=== PATIENT | female | born 2000 | race Caucasian/White ===

== ENCOUNTER 2023-01-07 08:07 | Emergency (ER) | payer BC ==
[2023-01-07 08:45] LABS: Specific Gravity > 1.030 (1.005-1.030)
[2023-01-07 08:46] LABS: Specific Gravity > 1.030 (1.005-1.030); Urine Bacteria None Seen /HPF (<20); Urine Bilirubin NEGATIVE (Negative); Urine Blood Trace (Negative); Urine Clarity Clear (Clear); Urine Color Yellow (Yellow); Urine Glucose NEGATIVE (Negative); Urine Mucus Slight /HPF (None Seen); Urine Protein TRACE (Negative); Urine RBC <5 /HPF (None Seen); Urine Urobilinogen Normal (Normal)
[2023-01-07 08:51] LABS: Absolute Lymphocytes (CBC) 0.6 K/uL (0.7-4.9); Hematocrit 41.1 % (36.0-45.0); Lymphocytes % 5.6 % (15.3-44.8); MCV 90.5 fL (80-100); MPV 10.4 fL (7.6-11.3); RBC Red Blood Cell Count 4.54 M/uL (3.86-4.86)
[2023-01-07] MEDS ORDERED: PANTOPRAZOLE 40 MG INJ ONE (08:53)
[2023-01-07] MEDS ORDERED: DIPHENHYDRAMINE 50 MG/ML VIAL ONE (08:53)
[2023-01-07] MEDS ORDERED: ONDANSETRON 4 MG/2 ML VIAL ONE (08:53)
[2023-01-07] MEDS ORDERED: NA CHLORIDE 0.9% 1,000 ML ONE (08:53)
[2023-01-07 09:07] LABS: Albumin 3.9 g/dL (3.4-5.0); Bilirubin Total 1.2 mg/dL (0.2-1.0); Magnesium 1.9 mg/dL (1.6-2.4); Potassium 3.5 mEq/L (3.5-5.1); Protein, Total 7.7 g/dL (6.4-8.2)
--- NOTE | 2023-01-07 09:44 | RAD REPORT ---
EXAM DESCRIPTION: CTAbdomen Pelvis W Contrast - 01/07/2023 9:34 am CLINICAL HISTORY: Abdominal pain. Abd pain;Nausea / vomiting COMPARISON: <Comparisons> TECHNIQUE: Biphasic CT imaging of the abdomen and pelvis was performed with 100 ml non-ionic IV cont rast. All CT scans are performed using dose optimization technique as appropriate and may include automated exposure control or mA/KV adjustment according to patient size. FINDINGS: The lung bases are clear. The liver, spleen, pancreas, adrenal glands and kidneys are within normal limits. No bowel obstruction, free air, free fluid or abscess. The appendix is normal. No evidence of signi ficant lymphadenopathy. No suspicious bony findings. IMPRESSION: No acute intra-abdominal or pelvic finding.
[2023-01-07 09:45] LABS: Barbiturates NEGATIVE (NEGATIVE); Benzodiazepines NEGATIVE (NEGATIVE); Cocaine NEGATIVE (NEGATIVE); METHAMPHETAM NEGATIVE (NEGATIVE); Methadone NEGATIVE (NEGATIVE); Opiates NEGATIVE (NEGATIVE); Phencyclidine NEGATIVE (NEGATIVE); THC Cannibis NEGATIVE (NEGATIVE)
[2023-01-07 10:07] LABS: Platelet Estimate ADEQ; White Blood Cell Scan OK (OK)
--- NOTE | 2023-01-07 10:07 | ER ---
Nurse's Notes [facility] Name: Ella Johnson Age: 22 yrs Sex: Female : 2000 Arrival Date: 01/07/2023 Time: 08:07 Bed 5 Private MD: Diagnosis: Nausea with vomiting, unspecified;Diarrhea, unspecified;Abdominal pain, unspecified Presentation: 01/07 08:17 Chief complaint: Low back pain, N/V, subjective fever, chills, and body aches x 2 days. hb Coronavirus screen: Client presents with at least one sign or symptom that may indicate coronavirus-19. Provider contacted for isolation considerations. Ebola Screen: No symptoms or risks identified at this time. Initial Sepsis Screen: Does the patient meet any 2 criteria? No. Patient's initial sepsis screen is negative. Does the patient have a suspected source of infection? No. Patient's initial sepsis screen is negative. Risk Assessment: Do you want to hurt yourself or someone else? Patient reports no desire to harm self or others. Onset of symptoms was January 06, 2023. 08:17 Method Of Arrival: Ambulatory 08:17 Acuity: GHASSAN 3 hb Triage Assessment: 10:08 General: Appears in no apparent distress. uncomfortable, Behavior is calm, cooperative, aa5 appropriate for age. Pain: Complains of pain in abdomen. GI: Reports. GI: Reports vomiting. 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 - Social history:: Smoking status: Patient denies any tobacco usage or history of. Screenin:08 [facility] ED Fall Risk Assessment (Adult) Score/Fall Risk Level 0 - 2 = Low Risk. Abuse aa5 screen: Denies threats or abuse. Denies injuries from another. Nutritional screening: No deficits noted. Tuberculosis screening: No symptoms or risk factors identified. Assessment: 08:53 Reassessment: Patient is alert, oriented x 3, equal unlabored respirations, skin aa5 warm/dry/pink. Pt's mother at bedside. Aware of wait time for lab results. . 10:11 Pain: Complains of pain in abdomen. GI: GI: Abdomen is round non-distended, Reports aa5 vomiting. Vital Signs: 08:17 BP 128 / 80; Pulse 82; Resp 16; Temp 98.9(O); Pulse Ox 97% on R/A; Weight 89.81 kg; hb Height 5 ft. 9 in. ; Pain 6/10; 09:19 BP 117 / 67; Pulse 72; Resp 18; Pulse Ox 100% on R/A; ld1 10:00 BP 110 / 66; Pulse 66; Resp 18; Pulse Ox 97% on R/A; aa5 08:17 Body Mass Index 29.24 (89.81 kg, 175.26 cm) hb 08:17 Pain Scale: Adult hb ED Course: 08:08 Patient arrived in ED. am2 08:12 Triston Hobson PA is PHCP. cp 08:12 Luke Ko MD is Attending Physician. cp 08:18 Tere Luna RN is Primary Nurse. ld1 08:18 Triage completed. hb 08:18 Arm band placed on. hb 08:43 Initial lab(s) drawn, by me, sent to lab. Inserted saline lock: 20 gauge in right aa5 antecubital area, using aseptic technique. Blood collected. 09:36 CT Abd/Pelvis - IV Contrast Only In Process Unspecified. EDMS 10:08 Patient has correct armband on for positive identification. aa5 10:10 No provider procedures requiring assistance completed. IV discontinued, intact, aa5 bleeding controlled, No redness/swelling at site. Pressure dressing applied. Administered Medications: 08:50 Drug: NS 0.9% IV 1000 ml Route: IV; Rate: 1 bolus; Site: right antecubital; aa5 10:00 Follow up: IV Status: Completed infusion; IV Intake: 1000ml aa5 08:50 Drug: Ondansetron IVP 4 mg Route: IVP; Site: right antecubital; aa5 10:00 Follow up: Response: Nausea is decreased aa5 08:52 Drug: Pantoprazole IVP 40 mg Route: IVP; Site: right antecubital; aa5 10:00 Follow up: Response: No adverse reaction aa5 08:53 Drug: diphenhydrAMINE IVP 25 mg Route: IVP; Site: right antecubital; aa5 10:00 Follow up: Response: No adverse reaction aa5 Medication: 10:08 VIS not applicable for this client. aa5 Intake: 10:00 IV: 1000ml; Total: 1000ml. aa5 Outcome: 10:06 Discharge ordered by . bijan 10:12 Discharged to home ambulatory. aa5 10:12 Condition: stable 10:12 Discharge instructions given to patient, Instructed on discharge instructions, follow up and referral plans. medication usage, Demonstrated understanding of instructions, follow-up care, medications, Prescriptions given X 2. 10:30 Patient left the ED. aa5 Signatures: Dispatcher [employer] EDCristina Tirado RN RN aa5 Triston Hobson PA PA cp Baxter, Heather, RN RN Stacie Irizarry 2 Tere Luna RN RN ld1
--- NOTE | 2023-01-07 10:07 | EDPHYS ---
Physician Documentation [facility] Name: Ella Johnson Age: 22 yrs Sex: Female : 2000 Arrival Date: 01/07/2023 Time: 08:07 Bed 5 Private MD: ED Physician Luke Ko HPI: 01/07 08:25 This 22 yrs old Female presents to ER via Ambulatory with complaints of Vomiting. cp 08:25 The patient presents to the emergency department with nausea, with "dry heaves", cp vomiting, that is continuous, described as dark brown, diarrhea, that is continuous, abdominal pain, of the mid abdomen. Onset: The symptoms/episode began/occurred yesterday. Possible causes: unknown. 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 - Social history:: Smoking status: Patient denies any tobacco usage or history of. ROS: 08:30 Constitutional: Positive for poor PO intake, Negative for fever. cp 08:30 Respiratory: Negative for cough, shortness of breath, wheezing. cp 08:30 Abdomen/GI: Positive for abdominal pain, nausea, vomiting, and diarrhea, anorexia, Negative for constipation, hematemesis, rectal bleeding. 08:30 Back: Positive for pain at rest, pain with movement. 08:30 Eyes: Negative for injury, pain, redness, and discharge. cp 08:30 ENT: Negative for drainage from ear(s), ear pain, sore throat, difficulty swallowing, difficulty handling secretions. 08:30 Cardiovascular: Negative for chest pain, edema, palpitations. 08:30 : Negative for urinary symptoms. 08:30 All other systems are negative. Exam: 08:35 Constitutional: The patient appears in no acute distress, alert, awake, non-toxic, well cp developed, well nourished, uncomfortable. 08:35 Head/Face: Normocephalic, atraumatic. cp 08:35 Eyes: Periorbital structures: appear normal, Conjunctiva: normal, no exudate, no injection, Sclera: no appreciated abnormality, Lids and lashes: appear normal, bilaterally. 08:35 ENT: External ear(s): are unremarkable, Nose: is normal, Mouth: Lips: moist, Oral mucosa: pink and intact, moist, Posterior pharynx: is normal, airway is patent, no erythema, no exudate. 08:35 Neck: ROM/movement: is normal, is supple, without pain, no range of motions limitations, no meningismus. 08:35 Chest/axilla: Inspection: normal, Palpation: is normal, no crepitus, no tenderness. 08:35 Cardiovascular: Rate: normal, Rhythm: regular, JVD: is not appreciated. 08:35 Respiratory: the patient does not display signs of respiratory distress, Respirations: normal, no use of accessory muscles, no retractions, labored breathing, is not present, Breath sounds: are clear throughout, no decreased breath sounds, no stridor, no wheezing. 08:35 Abdomen/GI: Inspection: abdomen appears normal, Bowel sounds: active, all quadrants, Palpation: soft, in all quadrants, moderate abdominal tenderness, in the abdomen diffusely, rebound tenderness, is not appreciated, involuntary guarding, is not appreciated. 08:35 Back: CVA tenderness, is absent. 08:35 Neuro: Orientation: to person, place \\T\\ time. Mentation: is normal, Motor: moves all fours, strength is normal, Sensation: is normal. Vital Signs: 08:17 BP 128 / 80; Pulse 82; Resp 16; Temp 98.9(O); Pulse Ox 97% on R/A; Weight 89.81 kg; hb Height 5 ft. 9 in. ; Pain 6/10; 09:19 BP 117 / 67; Pulse 72; Resp 18; Pulse Ox 100% on R/A; ld1 10:00 BP 110 / 66; Pulse 66; Resp 18; Pulse Ox 97% on R/A; aa5 08:17 Body Mass Index 29.24 (89.81 kg, 175.26 cm) hb 08:17 Pain Scale: Adult hb MDM: 01/06 10:05 Data reviewed: vital signs, nurses notes, lab test result(s), EKG, radiologic studies, cp CT scan. 01/07 08:16 Patient medically screened. cp 09:00 Differential diagnosis: gastritis, cholecystitis, pancreatitis, appendicitis, viral cp gastroenteritis, gastroenteritis. 10:05 Consideration of Admission/Observation Escalation of care including admission/observation considered. 10:05 I considered the following discharge prescriptions or medication management in the emergency department Medications were administered in the Emergency Department. See MAR. Counseling: I had a detailed discussion with the patient and/or guardian regarding: the historical points, exam findings, and any diagnostic results supporting the discharge/admit diagnosis, lab results, radiology results, to return to the emergency department if symptoms worsen or persist or if there are any questions or concerns that arise at home. Response to treatment: the patient's symptoms have markedly improved after treatment, Pain and nausea markedly improved. Patient tolerating po fluids. Will discharge to home for continued monitoring. 01/07 08:21 Order name: CBC with Diff; Complete Time: 10:11 01/07 09:01 Interpretation: Normal except: MIGUEL% 88.7; LYM% 5.6; NEUT A 8.8; LYMA 0.6. 01/07 08:21 Order name: CMP; Complete Time: 09:28 01/07 09:28 Interpretation: Normal except: NA 135; AST 12; BILIT 1.2; GLOB 3.8; A/G 1.0. 01/07 08:21 Order name: Lipase; Complete Time: 09:28 01/07 08:21 Order name: Test, Urine; Complete Time: 09:01 01/07 08:21 Order name: Urinalysis w/ reflexes; Complete Time: 09:01 01/07 09:01 Interpretation: Normal except: Urine SG > 1.030; UBLD Trace; UPROT TRACE. 01/07 08:21 Order name: Magnesium; Complete Time: 09:28 01/07 08:21 Order name: UDS; Complete Time: 09:51 01/07 09:51 Interpretation: Reviewed. 01/07 10:08 Order name: CBC Smear Scan; Complete Time: 10:11 EDMS 01/07 10:12 Interpretation: Reviewed. 01/07 09:02 Order name: CT Abd/Pelvis - IV Contrast Only; Complete Time: 09:51 01/07 09:51 Interpretation: Report reviewed. 01/07 08:21 Order name: IV Saline Lock; Complete Time: 08:43 01/07 08:21 Order name: Labs collected and sent; Complete Time: 08:43 cp 01/07 09:52 Order name: PO challenge; Complete Time: 10:05 cp Administered Medications: 08:50 Drug: NS 0.9% IV 1000 ml Route: IV; Rate: 1 bolus; Site: right antecubital; aa5 10:00 Follow up: IV Status: Completed infusion; IV Intake: 1000ml aa5 08:50 Drug: Ondansetron IVP 4 mg Route: IVP; Site: right antecubital; aa5 10:00 Follow up: Response: Nausea is decreased aa5 08:52 Drug: Pantoprazole IVP 40 mg Route: IVP; Site: right antecubital; aa5 10:00 Follow up: Response: No adverse reaction aa5 08:53 Drug: diphenhydrAMINE IVP 25 mg Route: IVP; Site: right antecubital; aa5 10:00 Follow up: Response: No adverse reaction aa5 Disposition: 14:13 Co-signature as Attending Physician, Luke Ko MD I agree with the assessment and kdr plan of care. Disposition Summary: 01/07/23 10:06 Discharge Ordered Location: Home cp Problem: new cp Symptoms: have improved cp Condition: Stable cp Diagnosis - Nausea with vomiting, unspecified cp - Diarrhea, unspecified cp - Abdominal pain, unspecified cp Followup: cp - With: Private Physician - When: 1 - 2 days - Reason: Worsening of condition Discharge Instructions: - Discharge Summary Sheet cp - Abdominal Pain, Adult cp - Food Choices to Help Relieve Diarrhea, Adult cp - Diarrhea, Adult cp - Nausea and Vomiting, Adult cp Forms: - Medication Reconciliation Form cp - Thank You Letter cp - Antibiotic Education cp - Prescription Opioid Use cp Prescriptions: - Protonix 40 mg Oral Tablet - take 1 tablet by ORAL route once daily; 30 tablet; Refills: 0, Product cp Selection Permitted - Zofran 4 mg Oral Tablet - take 1 tablet by ORAL route every 12 hours As needed; 20 tablet; Refills: 0, cp Product Selection Permitted Signatures: Dispatcher [employer] Luke Kay MD MD kdr Calderon, Audri RN RN aa5 Triston Hobson PA PA cp Valeria Arriaga RN RN
[2023-01-07 10:08] LABS: Blood Morphology Comment NOT SEEN (NOT SEEN)
[2023-01-07 10:39] VITALS: BP 117/67; TEMP 98.9; O2SAT 100
== END 2023-01-07 10:30 | disposition home or self-care (01) ==
LOC: ER 08:07
DX: R11.2 Nausea with vomiting, unspecified (principal); R19.7 Diarrhea, unspecified; R10.9 Unspecified abdominal pain
CPT/HCPCS: 96361; 85025; 81001; 36415; 83735; 81025; 83690; 80053; 80307; 74177; 96375; 96374; 99284; Q9967; J1200; C9113; J2405; J7030

== ENCOUNTER 2023-01-10 07:54 | Emergency (ER) | payer BC ==
[2023-01-10] MEDS ORDERED: Ringers Lactate 1,000 ML IV ONE (08:24)
[2023-01-10 08:38] LABS: Absolute Lymphocytes (CBC) 1.4 K/uL (0.7-4.9); Hematocrit 41.2 % (36.0-45.0); Lymphocytes % 25.4 % (15.3-44.8); MCV 90.2 fL (80-100); MPV 9.9 fL (7.6-11.3); RBC Red Blood Cell Count 4.57 M/uL (3.86-4.86)
[2023-01-10 09:33] LABS: Potassium 3.9 mEq/L (3.5-5.1); Troponin High Sensitivity 3.1 pg/mL (<58.9)
--- NOTE | 2023-01-10 09:34 | RAD REPORT ---
EXAM DESCRIPTION: RAD - Chest Single View - 01/10/2023 8:52 am CLINICAL HISTORY: chest pain, near syncope Chest pain. COMPARISON: No comparisons FINDINGS: Portable technique limits examination quality. The lungs are grossly clear. The heart is normal in size. No displaced fractures. IMPRESSION: No acute intrathoracic process suspected.
[2023-01-10 10:22] LABS: Specific Gravity 1.006 (1.005-1.030)
[2023-01-10 10:23] LABS: Specific Gravity 1.006 (1.005-1.030); Urine Bilirubin NEGATIVE (Negative); Urine Blood Negative (Negative); Urine Clarity Clear (Clear); Urine Color Colorless (Yellow); Urine Glucose NEGATIVE (Negative); Urine Protein NEGATIVE (Negative); Urine Urobilinogen Normal (Normal); Urine pH 6.5 (5.0-7.0)
[2023-01-10] MEDS ORDERED: MECLIZINE HCL 12.5 MG TAB ONE (10:58)
--- NOTE | 2023-01-10 10:59 | RAD REPORT ---
EXAM DESCRIPTION: CT - Head Brain Wo Cont - 01/10/2023 10:46 am CLINICAL HISTORY: DIZZINESS Headache, drowsiness COMPARISON: No comparisons TECHNIQUE: All CT scans are performed using dose optimization technique as appropriate and may inclu de automated exposure control or mA/KV adjustment according to patient size. FINDINGS: No intracranial hemorrhage, hydrocephalus or extra-axial fluid collection.No areas of brai n edema or evidence of midline shift. The paranasal sinuses and mastoids are clear. The calvarium is intact. IMPRESSION: No acute intracranial abnormality.
--- NOTE | 2023-01-10 12:19 | ER ---
Nurse's Notes [facility] Name: Ella Johnson Age: 22 yrs Sex: Female : 2000 Arrival Date: 01/10/2023 Time: 07:54 Bed 8 Private MD: Diagnosis: Dizziness and giddiness Presentation: 01/10 08:02 Chief complaint: Patient states: was here on Sunday for n/v/abd pain, has not been iw eating much, feels very foggy and weak now. Coronavirus screen: At this time, the client does not indicate any symptoms associated with coronavirus-19. Ebola Screen: Patient negative for fever greater than or equal to 101.5 degrees Fahrenheit, and additional compatible Ebola Virus Disease symptoms Patient denies exposure to infectious person. Patient denies travel to an Ebola-affected area in the 21 days before illness onset. No symptoms or risks identified at this time. Initial Sepsis Screen: Does the patient meet any 2 criteria? No. Patient's initial sepsis screen is negative. Does the patient have a suspected source of infection? No. Patient's initial sepsis screen is negative. Risk Assessment: Do you want to hurt yourself or someone else? Patient reports no desire to harm self or others. Onset of symptoms was January 07, 2023. 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 - Social history:: Smoking status: Patient denies any tobacco usage or history of. Screenin:29 [facility] ED Fall Risk Assessment (Adult) History of falling in the last 3 months, kc6 including since admission No falls in past 3 months (0 pts) Confusion or Disorientation No (0 pts) Intoxicated or Sedated No (0 pts) Impaired Gait No (0 pts) Mobility Assist Device Used No (0 pt) Altered Elimination No (0 pt) Score/Fall Risk Level 0 - 2 = Low Risk Oriented to surroundings, Maintained a safe environment, Educated pt \T\ family on fall prevention, incl call for assistance when getting out of bed, Assessed \T\ reinforced patient's understanding of fall precautions, Hourly rounding (assess needs \T\ fall precautionary measures) done. Abuse screen: Denies threats or abuse. Denies injuries from another. Nutritional screening: No deficits noted. Tuberculosis screening: No symptoms or risk factors identified. Assessment: 08:30 General: Appears in no apparent distress. comfortable, Behavior is calm, cooperative, kc6 appropriate for age. Pain: Denies pain. Neuro: Gallagher Agitation-Sedation Scale (RASS): 0 - Alert and Calm Level of Consciousness is awake, alert, obeys commands, Oriented to person, place, time, situation, Appropriate for age Reports dizziness, Denies headache. Cardiovascular: Capillary refill < 3 seconds. Respiratory: Airway is patent Trachea midline Respiratory effort is even, unlabored, Respiratory pattern is regular, symmetrical. GI: No signs and/or symptoms were reported involving the gastrointestinal system. : No signs and/or symptoms were reported regarding the genitourinary system. EENT: No signs and/or symptoms were reported regarding the EENT system. Derm: No signs and/or symptoms reported regarding the dermatologic system. Skin is intact, Skin is pink, warm \T\ dry. Musculoskeletal: No signs and/or symptoms reported regarding the musculoskeletal system. Circulation, motion, and sensation intact. Capillary refill < 3 seconds, Range of motion: intact in all extremities. 09:30 Reassessment: Patient appears in no apparent distress at this time. No changes from kc6 previously documented assessment. Patient and/or family updated on plan of care and expected duration. Pain level reassessed. Patient is alert, oriented x 3, equal unlabored respirations, skin warm/dry/pink. 10:30 Reassessment: Patient appears in no apparent distress at this time. No changes from kc6 previously documented assessment. Patient and/or family updated on plan of care and expected duration. Pain level reassessed. Patient is alert, oriented x 3, equal unlabored respirations, skin warm/dry/pink. 11:30 Reassessment: Patient appears in no apparent distress at this time. No changes from kc6 previously documented assessment. Patient and/or family updated on plan of care and expected duration. Pain level reassessed. Patient is alert, oriented x 3, equal unlabored respirations, skin warm/dry/pink. 13:05 Reassessment: Patient is alert, oriented x 3, equal unlabored respirations, skin aa5 warm/dry/pink. Vital Signs: 08:02 BP 129 / 76; Pulse 69; Resp 16; Temp 98.2; Pulse Ox 100% on R/A; Weight 88.45 kg; iw Height 5 ft. 9 in. ; 09:19 BP 111 / 69; Pulse 59; Resp 18 S; Pulse Ox 100% on R/A; Pain 0/10; kc6 10:43 BP 117 / 81; Pulse 55; Resp 18 S; Pulse Ox 100% on R/A; kc6 11:48 BP 111 / 63; Pulse 59; Resp 18 S; Pulse Ox 100% on R/A; kc6 08:02 Body Mass Index 28.80 (88.45 kg, 175.26 cm) iw 09:19 Pain Scale: Adult kc6 ED Course: 07:56 Patient arrived in ED. ts1 08:03 Triage completed. iw 08:04 Arm band placed on. iw 08:06 Everette Potts PA is PHCP. jmm 08:06 Vic Dejesus MD is Attending Physician. jmm 08:12 Essie Montalvo, ELAINA is Primary Nurse. kc6 08:29 Patient has correct armband on for positive identification. Bed in low position. Call kc6 light in reach. Side rails up X2. 08:29 Inserted saline lock: 20 gauge in right antecubital area, using aseptic technique. kc6 Blood collected. 08:54 XRAY Chest (1 view) In Process Unspecified. EDMS 10:12 Urinalysis w/ reflexes Sent. kc6 10:12 PREGU Sent. kc6 10:46 CT Head Brain wo Cont In Process Unspecified. EDMS 12:18 Coty Gilliland MD is Referral Physician. jmm 13:05 IV discontinued, intact, bleeding controlled, No redness/swelling at site. Pressure aa5 dressing applied. 13:05 No provider procedures requiring assistance completed. aa5 Administered Medications: 08:29 Drug: Lactated Ringers Solution IV 1000 ml Route: IV; Rate: 1000 bolus; Site: right kc6 antecubital; 10:49 Follow up: Response: No adverse reaction; IV Status: Completed infusion; IV Intake: kc6 1000ml 10:53 Drug: Meclizine PO 50 mg Route: PO; kc6 13:05 Follow up: Response: No adverse reaction aa5 12:40 Drug: Decadron - Dexamethasone IVP 10 mg Route: IVP; Site: left antecubital; kc6 13:05 Follow up: Response: No adverse reaction aa5 Medication: 13:05 VIS not applicable for this client. aa5 Intake: 10:49 IV: 1000ml; Total: 1000ml. kc6 Outcome: 12:18 Discharge ordered by MD. dos santos 13:05 Discharged to home ambulatory. aa5 13:05 Condition: stable 13:05 Discharge instructions given to patient, Instructed on discharge instructions, follow up and referral plans. medication usage, Demonstrated understanding of instructions, follow-up care, medications, Prescriptions given X 2. 13:10 Patient left the ED. kc6 Signatures: Dispatcher [employer] EDMS Everette Potts PA PA jmm Williams, Irene, RN RN iw Calderon, Audri RN Essie Campos RN RN kc6 Cecy Stovall PAS PAS ts1 Corrections: (The following items were deleted from the chart) 08:04 08:03 PSHx: Unable to Obtain; iw iw
--- NOTE | 2023-01-10 12:19 | EDPHYS ---
Physician Documentation [facility] Name: Ella Johnson Age: 22 yrs Sex: Female : 2000 Arrival Date: 01/10/2023 Time: 07:54 Bed 8 Private MD: ED Physician Vic Dejesus HPI: 01/10 08:11 This 22 yrs old Female presents to ER via Ambulatory with complaints of Dizziness. jmm 08:11 The patient presents with dizziness. Onset: The symptoms/episode began/occurred jmm gradually, 3 day(s) ago. Context:. Modifying factors: The symptoms are alleviated by nothing, the symptoms are aggravated by changing position. Associated signs and symptoms: Pertinent positives: nausea. This is a 22 year old female with no chronic medical conditions that presents to the ED with complaints of dizziness, nausea, vomiting. Was evaluated previously in the ED with negative CT scan of abdomen. Returned due to feeling "foggy" with dizziness and continued nausea. . [employer]: 08:04 LMP N/A - Irregular menses iw Historical: - Allergies: 08:03 No Known Allergies; iw - Home Meds: 08:03 None [Active]; iw - PMHx: 08:03 None; iw - PSHx: 08:03 None; iw - Immunization history:: Adult Immunizations. - Social history:: Smoking status: Patient denies any tobacco usage or history of. ROS: 12:14 Constitutional: Negative for fever, chills, and weight loss, Cardiovascular: Negative jmm for chest pain, palpitations, and edema, Respiratory: Negative for shortness of breath, cough, wheezing, and pleuritic chest pain. 12:14 Abdomen/GI: Positive for nausea. 12:14 Neuro: Positive for dizziness. 12:14 All other systems are negative. Exam: 12:14 Constitutional: This is a well developed, well nourished patient who is awake, alert, jmm and in no acute distress. Head/Face: atraumatic. 12:14 Eyes: Nystagmus: nystagmus with fast component noted. Vital Signs: 08:02 BP 129 / 76; Pulse 69; Resp 16; Temp 98.2; Pulse Ox 100% on R/A; Weight 88.45 kg; iw Height 5 ft. 9 in. ; 09:19 BP 111 / 69; Pulse 59; Resp 18 S; Pulse Ox 100% on R/A; Pain 0/10; kc6 10:43 BP 117 / 81; Pulse 55; Resp 18 S; Pulse Ox 100% on R/A; kc6 11:48 BP 111 / 63; Pulse 59; Resp 18 S; Pulse Ox 100% on R/A; kc6 08:02 Body Mass Index 28.80 (88.45 kg, 175.26 cm) iw 09:19 Pain Scale: Adult kc6 MDM: 08:11 Patient medically screened. [facility] 12:17 Differential diagnosis: cardiac arrhythmia, CVA, hypovolemia, idiopathic dizziness, jmm near-syncope, vertigo. Data reviewed: vital signs, nurses notes, lab test result(s), EKG, radiologic studies. Consideration of Admission/Observation Escalation of care including admission/observation considered. I considered the following discharge prescriptions or medication management in the emergency department Medications were administered in the Emergency Department. See MAR. Counseling: I had a detailed discussion with the patient and/or guardian regarding: the historical points, exam findings, and any diagnostic results supporting the discharge/admit diagnosis, lab results, radiology results, the need for outpatient follow up, to return to the emergency department if symptoms worsen or persist or if there are any questions or concerns that arise at home. ED course: Symptoms alleviated after administration of meclizine. Patient advised to follow-up with ENT for further evaluation otherwise and strict return precautions. Patient understood agrees plan of care.. 01/10 08:12 Order name: Basic Metabolic Panel; Complete Time: 09:35 [facility] 01/10 08:12 Order name: CBC with Diff; Complete Time: 08:49 [facility] 01/10 08:12 Order name: D-Dimer; Complete Time: 09:22 [facility] 01/10 08:12 Order name: Troponin HS; Complete Time: 09:35 [facility] 01/10 08:12 Order name: Urinalysis w/ reflexes; Complete Time: 10:25 [facility] 01/10 08:12 Order name: PREGU; Complete Time: 10:25 [facility] 01/10 08:12 Order name: XRAY Chest (1 view); Complete Time: 09:35 [facility] 01/10 10:31 Order name: CT Head Brain wo Cont; Complete Time: 11:01 [facility] 01/10 08:12 Order name: EKG; Complete Time: 08:13 [facility] 01/10 08:12 Order name: Cardiac monitoring; Complete Time: 08: [facility] 01/10 08:12 Order name: EKG - Nurse/Tech; Complete Time: 08: [facility] 01/10 08:12 Order name: IV Saline Lock; Complete Time: 08: [facility] 01/10 08:12 Order name: Labs collected and sent; Complete Time: 08: [facility] 01/10 08:12 Order name: O2 Per Protocol; Complete Time: 08: [facility] 01/10 08:12 Order name: O2 Sat Monitoring; Complete Time: 08: [facility] 01/10 08:45 Order name: Labs - recollect needed: recollect blue and green top; Complete Time: 09:03 bd Administered Medications: 08:29 Drug: Lactated Ringers Solution IV 1000 ml Route: IV; Rate: 1000 bolus; Site: right kc6 antecubital; 10:49 Follow up: Response: No adverse reaction; IV Status: Completed infusion; IV Intake: kc6 1000ml 10:53 Drug: Meclizine PO 50 mg Route: PO; kc6 13:05 Follow up: Response: No adverse reaction aa5 12:40 Drug: Decadron - Dexamethasone IVP 10 mg Route: IVP; Site: left antecubital; kc6 13:05 Follow up: Response: No adverse reaction aa5 Disposition: 13:13 Co-signature as Attending Physician, Vic Dejesus MD I reviewed the patient's care rt provided by the Advanced Practice Provider and agree with the diagnosis and treatment plan. Disposition Summary: 01/10/23 12:18 Discharge Ordered Location: Home [facility] Condition: Stable [facility] Diagnosis - Dizziness and giddiness [facility] Followup: [facility] - With: Coty Gilliland MD - When: 2 - 3 days - Reason: Recheck today's complaints, Continuance of care, Re-evaluation by your physician Discharge Instructions: - Discharge Summary Sheet [facility] - Benign Positional Vertigo m - Dizziness [facility] - Vertigo [facility] - How to Perform the Tika Maneuver [facility] Forms: - Work release form bd - Medication Reconciliation Form m - Thank You Letter [facility] - Antibiotic Education m - Prescription Opioid Use [facility] Prescriptions: - ondansetron 4 mg Oral Tablet,disintegrating - take 1 tablet by ORAL route every 4-6 hours As needed as needed for nausea and jmm vomiting; 30 tablet; Refills: 0, Product Selection Permitted - Meclizine 25 mg Oral Tablet - take 1 tablet by ORAL route every 8 hours As needed; 30 tablet; Refills: 0, jmm Product Selection Permitted Signatures: Dispatcher [employer] EDSimran Baker Joel, PA PA jmm Williams, Irene, RN RN iw Essie Montalvo RN RN kc6 Vic Dejesus MD MD rt Calderon, Audri RN aa5 Corrections: (The following items were deleted from the chart) 08:04 08:03 PSHx: Unable to Obtain; rayna
[2023-01-10] MEDS ORDERED: dexAMETHasone 10 MG/ML VIAL ONE (12:44)
[2023-01-10 13:20] VITALS: BP 111/63
[2023-01-10 13:30] VITALS: TEMP 98.6; O2SAT 99
--- NOTE | 2023-01-11 05:38 | EKG ---
Test Date: 2023-01-10 Test Time: 08:24:05 Software Support Representative: FERNANDA MEASUREMENT RESULTS: Intervals: Rate: 60 MN: 160 QRSD: 84 QT: 410 QTc: 410 [place]: P: 56 MN: 160 QRS: 85 T: 106 INTERPRETIVE STATEMENTS: Age and gender specific ECG analysis Normal sinus rhythm normal ecg No previous ECG available for comparison Electronically Signed On 01-11-23 05:37:29 CDT by Mario Harp
--- NOTE | 2023-01-11 11:24 | EKG ---
Test Date: 2023-01-10 Test Time: 08:26:24 Rippler: FERNANDA MEASUREMENT RESULTS: Intervals: Rate: 62 [place]: 154 QRSD: 86 QT: 404 QTc: 410 [place]: P: 50 [place]: 154 QRS: 77 T: 85 INTERPRETIVE STATEMENTS: Normal sinus rhythm Nonspecific ST abnormality Abnormal ECG Compared to ECG 01/10/2023 08:24:05 ST (T wave) deviation now present Electronically Signed On 01-11-23 11:20:28 CDT by Mario Harp
== END 2023-01-10 13:10 | disposition home or self-care (01) ==
LOC: ER 07:54
DX: R42 Dizziness and giddiness (principal); R11.0 Nausea
CPT/HCPCS: 85025; 80048; 36415; 81025; 85379; 81003; 84484; 70450; 71045; J8597; J1100; J7120; 93005